=== PATIENT | female | born 1940 | race Caucasian/White ===

== ENCOUNTER 2022-02-21 14:46 | Inpatient (IN) | payer MEDICARE, MEDICAID ==
[~2022-02-21] VITALS: Ht 162.6 cm; Wt 68.2 kg
[2022-02-21] MEDS ORDERED: normal saline 1000ml 1,000 ML IV ONE (15:50)
[2022-02-21 16:19] LABS: BASOPHILS # (AUTO) 0.1 X10'3 (0-0.2); BASOPHILS % (AUTO) 0.8 % (0-1); EOSINOPHILS # (AUTO) 0.3 X10'3 (0-0.9); EOSINOPHILS % (AUTO) 3.9 % (0-6); HEMATOCRIT 37.3 % (35.0-45.0); HEMOGLOBIN 12.2 g/dl (12.0-16.0); LYMPHOCYTES % (AUTO) 29.1 % (21-51); MEAN CORPUSCULAR HEMOGLOBIN 28.9 PG (27.0-31.0); MEAN CORPUSCULAR HGB CONC 32.7 g/dL (33.0-36.5); MEAN CORPUSCULAR VOLUME 88.4 FL (78-98); MEAN PLATELET VOLUME 7.1 FL (7.4-10.4); MONOCYTES # (AUTO) 0.7 X10'3 (0-0.9); MONOCYTES % (AUTO) 10.3 % (2-12); NEUTROPHILS # (AUTO) 3.9 X10'3 (1.8-7.7); NEUTROPHILS % (AUTO) 55.9 % (42-75); PLATELET COUNT 455 X10'3 (140-440); RED BLOOD COUNT 4.21 X10'6 (4.20-5.60); RED CELL DISTRIBUTION WIDTH 14.4 % (11.5-14.5)
[2022-02-21 16:32] LABS: APTT 27 SECONDS (22-32); D-DIMER 0.64 MG/L FEU (0-0.50)
[2022-02-21 16:33] LABS: ALANINE AMINOTRANSFERASE 24 U/L (12-78); ALBUMIN 3.7 G/DL (3.4-5.0); ALBUMIN/GLOBULIN RATIO 1.1 (1.1-1.5); ALKALINE PHOSPHATASE 77 IU/L (46-116); ANION GAP 12 (8-16); ASPARTATE AMINO TRANSFERASE 16 U/L (10-37); BILIRUBIN,TOTAL 0.3 MG/DL (0.1-1.0); BLOOD UREA NITROGEN 30 MG/DL (7-18); BUN/CREATININE RATIO 20.1 (6.6-38.0); CALCIUM 9.2 MG/DL (8.5-10.1); CHLORIDE 103 MMOL/L (99-107); CREATININE 1.49 MG/DL (0.40-0.90); GLUCOSE 84 MG/DL (70-104); MAGNESIUM 1.9 MG/DL (1.5-2.4); POTASSIUM 4.2 MMOL/L (3.5-5.1); SODIUM 139 MMOL/L (135-145); TOTAL CARBON DIOXIDE 23.6 MMOL/L (24-32); TOTAL PROTEIN 7.2 G/DL (6.4-8.2); eGFR 33 ML/MIN
[2022-02-21] MEDS ORDERED: aspirin 325mg tablet PO ONE (17:10)
[2022-02-21] MEDS ORDERED: clopidogrel 300mg tablet PO ONE (17:10)
[2022-02-21] MEDS ORDERED: LOSA25TA41 PO (17:50)
[2022-02-21] MEDS ORDERED: CELE-80 PO (17:51)
[2022-02-21] MEDS ORDERED: mag hydrox/Alum hydrox/simeth 30ml oral suspension PO PRN (17:55)
[2022-02-21] MEDS ORDERED: magnesium hydroxide 30ml (MOM) UD suspension PO PRN (17:55)
[2022-02-21] MEDS: normal saline 1000ml 1,000 ML IV SCH (18:00)
--- NOTE | 2022-02-21 18:20 | NUR ---
ECHO CALLED SAID THIS PATIENT WILL NOT GET DONE TILL THE AM 02/21/2022 0132
[2022-02-21 18:24] LABS: CHOL/HDL RATIO 6.2 (0.00-4.99); CHOLESTEROL 305 MG/DL (0-200); HDL CHOLESTEROL 49 MG/DL (35-60); LDL CHOLESTEROL 172 MG/DL (50-100); TRIGLYCERIDES 405 MG/DL (20-135)
[2022-02-21] MEDS ORDERED: aminophylline 500mg/20ml vial IV PRN (20:25)
[2022-02-21] MEDS ORDERED: regadenoson 0.4mg/5ml syringe IV PRN (20:25)
[2022-02-21] MEDS ORDERED: metoprolol tartrate 1mg/ml inj IV PRN (20:25)
[2022-02-21] MEDS ORDERED: nitroGLYCERIN 0.4mg SUBLingual tab SL PRN (20:25)
[2022-02-21] MEDS: docusate sod 100mg capsule PO SCH (20:48)
--- NOTE | 2022-02-21 23:21 | NUR ---
Pt moved from forman bed to room 12 awaiting a bed for admit. Pt is aware she is NPO for a procedure in the AM. Pt has no compalints at this time.
[2022-02-22] VITALS (11 sets, daily range): BP systolic 104–216; BP diastolic 46–109
[2022-02-22] MEDS: normal saline 1000ml 1,000 ML IV SCH ×4 (01:26→22:15)
[2022-02-22 03:29] LABS: BASOPHILS # (AUTO) 0.1 X10'3 (0-0.2); BASOPHILS % (AUTO) 0.9 % (0-1); EOSINOPHILS # (AUTO) 0.3 X10'3 (0-0.9); HEMATOCRIT 38.3 % (35.0-45.0); HEMOGLOBIN 12.7 g/dl (12.0-16.0); LYMPHOCYTES # (AUTO) 2.2 X10'3 (1.1-4.8); LYMPHOCYTES % (AUTO) 29.1 % (21-51); MEAN CORPUSCULAR HEMOGLOBIN 29.7 PG (27.0-31.0); MEAN CORPUSCULAR HGB CONC 33.3 g/dL (33.0-36.5); MEAN CORPUSCULAR VOLUME 89.2 FL (78-98); MONOCYTES # (AUTO) 0.8 X10'3 (0-0.9); MONOCYTES % (AUTO) 10.8 % (2-12); NEUTROPHILS # (AUTO) 4.2 X10'3 (1.8-7.7); NEUTROPHILS % (AUTO) 55.2 % (42-75); PLATELET COUNT 440 X10'3 (140-440); RED BLOOD COUNT 4.29 X10'6 (4.20-5.60); RED CELL DISTRIBUTION WIDTH 14.3 % (11.5-14.5); WHITE BLOOD COUNT 7.7 X10'3 (4.5-11.0)
[2022-02-22 03:39] LABS: ALBUMIN 3.7 G/DL (3.4-5.0); ANION GAP 9 (8-16); BLOOD UREA NITROGEN 30 MG/DL (7-18); BUN/CREATININE RATIO 23.6 (6.6-38.0); CALCIUM 9.2 MG/DL (8.5-10.1); CHLORIDE 107 MMOL/L (99-107); CREATININE 1.27 MG/DL (0.40-0.90); GLUCOSE 93 MG/DL (70-104); POTASSIUM 4.3 MMOL/L (3.5-5.1); SODIUM 143 MMOL/L (135-145); TOTAL CARBON DIOXIDE 26.9 MMOL/L (24-32); eGFR 40 ML/MIN
--- NOTE | 2022-02-22 06:30 | NUR ---
Ramon rivera in [facility] - 02/22/22 at 1033 by RENETTA Assumed care of pt from Mary.
--- NOTE | 2022-02-22 06:30 | NUR ---
Assumed care of pt from offgoing nurse.
[2022-02-22] MEDS: atorvastatin 20mg tablet PO SCH (07:16)
[2022-02-22] MEDS: docusate sod 100mg capsule PO SCH ×2 (07:17→20:15)
[2022-02-22] MEDS: clopidogrel 75mg tablet PO SCH (07:18)
[2022-02-22] MEDS: aspirin 81mg, enteric-coated 1 TAB TABLET.DR PO SCH (07:18)
--- NOTE | 2022-02-22 07:20 | NUR ---
Pt awake in no acute distress, ambulates to bathroom and back in bed without difficulty.
--- NOTE | 2022-02-22 07:25 | NUR ---
Speech Therapist and Nuclear med personnel at bedside. Pt given PO meds, tolerated without difficulty.
[2022-02-22] MEDS ORDERED: iohexol 350MG/ML 100ml bottle IV ONE (09:04)
--- NOTE | 2022-02-22 09:30 | NUR ---
Pt transported to [facility] for procedure.
[2022-02-22] MEDS ORDERED: phenylephrine inj 50 MG in normal saline 250ml IV soln 245 ML IV PRN (10:15)
[2022-02-22] MEDS ORDERED: nitroPRUSSIDE sod inj. 50 MG in dextrose 5%-water 248 ML IV SCH (10:15)
[2022-02-22] MEDS ORDERED: nitroPRUSSIDE 0.2mg/mL in NS 250 ML IV SCH (10:25)
[2022-02-22] MEDS ORDERED: nitroPRUSSIDE 0.2mg/mL in NS 100 ML IV SCH (10:27)
--- NOTE | 2022-02-22 10:29 | NUR ---
PAGER ID: [phone] MESSAGE: Dr Hadley, call stress lab [id number], Germaine Portillo room 12 in ER, BP 219/90, gave Lopressor, BP 196/81 HR 46, Starr CHANG. 1005 pt to stress lab, BP is high, medicated per protocol, 1013 BP remains high, HR 46, Dr Hadley paged, pt c/o headache, no blurred vision, no dizziness, no chest pain/discomfort
--- NOTE | 2022-02-22 10:35 | NUR ---
report to Norma CHANG in ER
--- NOTE | 2022-02-22 10:35 | NUR ---
pt taken back ER, report to Mary CHANG
[2022-02-22] MEDS ORDERED: hydrALAZINE 20mg/ml inj. IV ONE ×2 (10:55→14:10)
--- NOTE | 2022-02-22 11:00 | NUR ---
Pt back from treadalong, connected back to monitor for obseervation, denies cp, sob or other sx.
--- NOTE | 2022-02-22 11:11 | NUR ---
PAGED DR. HUFFMAN FOR CLARIFICATION ON BP MED. WILL AWAIT PHONE CALL. PT MEDICATED WITH HYDRALAZINE IN THE MEAN TIME.
--- NOTE | 2022-02-22 12:20 | NUR ---
Dr Hadley paged to request anxiety medication for stress test and to follow up with blood pressure.
[2022-02-22] MEDS: LORazepam 0.5 MG tablet PO PRN ×2 (12:39→22:28)
--- NOTE | 2022-02-22 12:45 | NUR ---
Pt's at bedside.
--- NOTE | 2022-02-22 13:25 | NUR ---
Pt transported back to nuclear medicine for stress test .
--- NOTE | 2022-02-22 13:30 | NUR ---
Pt admitted to hospital for further observation.
[2022-02-22] MEDS ORDERED: regadenoson 0.4mg/5ml syringe IV PRN (14:10)
--- NOTE | 2022-02-22 14:11 | NUR ---
pt is back in stress lab, BP 234/111, Dr Hadley aware, gave verbal order for hydralzine 10mg IV x1, can do stress test when BP is 160/. pt is resting quietly on recliner, no complaints
--- NOTE | 2022-02-22 14:20 | NUR ---
Attempeted multiple time to start iv to give medication, unsuccessful at this time. Admission provider paged to make aware.
--- NOTE | 2022-02-22 15:20 | NUR ---
OR CALLED; STATING THAT PT WAS SCHED FOR A CORATID PROCEEDUR THIS AFTERNOON HOWEVER ICU WILL NOT BEABLE TO TAKE PT THIS EVENING. SURGERY HAS BEEN POSPONED UNTIL 02/23 @1131
--- NOTE | 2022-02-22 15:46 | NUR ---
STRESS TEST COMPLETE, PT BACK TO ER ROOM 12, REPORT TO KARLA CHANG
[2022-02-22] MEDS: acetaminophen 325mg tablet PO PRN ×2 (15:49→20:15)
--- NOTE | 2022-02-22 15:50 | NUR ---
PT C/O HEADACHE, MEDICATED WITH TYLENOL,
--- NOTE | 2022-02-22 15:57 | NUR ---
Pt back from nuclear medicine after stress test. Pt connected back to equipment monitor phototypesetting for further observation.
[2022-02-23] VITALS (14 sets, daily range): BP systolic 121–198; BP diastolic 49–85
--- NOTE | 2022-02-23 01:00 | NUR ---
Patient in room ED 12. I have received report from Katheryn CHANG and had the opportunity to ask questions and assume patient care.
--- NOTE | 2022-02-23 01:36 | NUR ---
Pt up on unit. Denies any c/o pain, no s/s of distress. Pt on RA.
[2022-02-23] MEDS: normal saline 1000ml 1,000 ML IV SCH ×2 (04:54→10:40)
--- NOTE | 2022-02-23 06:18 | NUR ---
Problems reprioritized. Patient report given, questions answered & plan of care reviewed with Zenobia CHANG.
[2022-02-23 07:35] LABS: BASOPHILS % (AUTO) 0.3 % (0-1); EOSINOPHILS # (AUTO) 0.2 X10'3 (0-0.9); EOSINOPHILS % (AUTO) 2.5 % (0-6); HEMATOCRIT 34.6 % (35.0-45.0); HEMOGLOBIN 11.5 g/dl (12.0-16.0); LYMPHOCYTES # (AUTO) 1.5 X10'3 (1.1-4.8); LYMPHOCYTES % (AUTO) 22.4 % (21-51); MEAN CORPUSCULAR HEMOGLOBIN 29.4 PG (27.0-31.0); MEAN CORPUSCULAR HGB CONC 33.2 g/dL (33.0-36.5); MEAN CORPUSCULAR VOLUME 88.6 FL (78-98); MONOCYTES # (AUTO) 0.6 X10'3 (0-0.9); MONOCYTES % (AUTO) 9.3 % (2-12); NEUTROPHILS # (AUTO) 4.3 X10'3 (1.8-7.7); NEUTROPHILS % (AUTO) 65.5 % (42-75); PLATELET COUNT 435 X10'3 (140-440); RED BLOOD COUNT 3.91 X10'6 (4.20-5.60); RED CELL DISTRIBUTION WIDTH 14.1 % (11.5-14.5); WHITE BLOOD COUNT 6.6 X10'3 (4.5-11.0)
[2022-02-23 07:38] LABS: ALBUMIN 3.2 G/DL (3.4-5.0); ANION GAP 7 (8-16); BLOOD UREA NITROGEN 24 MG/DL (7-18); BUN/CREATININE RATIO 20.7 (6.6-38.0); CALCIUM 8.6 MG/DL (8.5-10.1); CHLORIDE 110 MMOL/L (99-107); CREATININE 1.16 MG/DL (0.40-0.90); GLUCOSE 94 MG/DL (70-104); POTASSIUM 3.6 MMOL/L (3.5-5.1); SODIUM 142 MMOL/L (135-145); eGFR 45 ML/MIN
[2022-02-23] MEDS: docusate sod 100mg capsule PO SCH ×2 (08:00→20:00)
[2022-02-23] MEDS: aspirin 81mg, enteric-coated 1 TAB TABLET.DR PO SCH (08:00)
[2022-02-23] MEDS: clopidogrel 75mg tablet PO SCH (08:00)
[2022-02-23] MEDS: atorvastatin 20mg tablet PO SCH (08:00)
[2022-02-23] MEDS: acetaminophen 325mg tablet PO PRN (08:02)
--- NOTE | 2022-02-23 09:53 | NUR ---
Per MD Hadley - zuly to miss dose all AM meds d/t sx.
[2022-02-23] MEDS: losartan 25mg tablet PO SCH (10:34)
[2022-02-23] MEDS: LORazepam 0.5 MG tablet PO PRN (10:35)
[2022-02-23] MEDS ORDERED: LIDOcaine 1% (10mg/ml) 2ml vial ONE ×2 (10:37→10:56)
[2022-02-23] MEDS ORDERED: normal saline 1000ml 1,000 ML IV SCH (10:40)
[2022-02-23] MEDS ORDERED: heparin 10,000 units/1 ML INJ ONE (10:56)
--- NOTE | 2022-02-23 11:15 | NUR ---
Pt was taken to OR with OR staff. Daughter Ashli, Jeffrey in tow. All personal belongings were taken down with patient by daughter Ashli. Pt's BP was high d/t anxiety. OR staff aware that losartan and ativan was given about 30 min prior. Called report to Chacho in recovery. All questions, comments, concerns answered at this time. Tele box 24 was handed to telegraph repeater mechanic monitor.
[2022-02-23] MEDS ORDERED: midazolam 1 mg/ML 2ml injection ONE (11:59)
[2022-02-23] MEDS ORDERED: propofol inj 20 ML IV ONE (11:59)
[2022-02-23] MEDS ORDERED: fentaNYL/PF 50MCG/1 ML 2ML syringe ONE (11:59)
[2022-02-23] MEDS ORDERED: rocuronium 10mg/ml inj IV ONE ×2 (12:02→12:56)
[2022-02-23] MEDS ORDERED: ePHEDrine 50MG/ML INJ. ONE (12:04)
[2022-02-23] MEDS ORDERED: sevoflurane 250ml liquid IH ONE (12:06)
[2022-02-23] MEDS ORDERED: protamine sulf. 10mg/ml inj. IV ONE (12:06)
[2022-02-23] MEDS ORDERED: neostigmine methylsulfate 1 MG/ML 10ml vial ONE (12:06)
[2022-02-23] MEDS ORDERED: ceFAZolin 1000mg inj ONE ×2 (12:29)
[2022-02-23] MEDS ORDERED: meperidine/PF 25mg/ml syringe IV PRN ×3 (13:15)
[2022-02-23] MEDS ORDERED: proCHLORperazine 10 MG/2 ml inj IV PRN (13:15)
[2022-02-23] MEDS ORDERED: ringers solution, lacted 1,000 ML IV SCH (13:15)
[2022-02-23] MEDS ORDERED: ondansetron/PF 4mg/2ml inj IV PRN (13:15)
[2022-02-23] MEDS ORDERED: morphine 4 MG/ML inj SYRINge IV PRN (13:15)
[2022-02-23] MEDS ORDERED: labetalol 20mg/4ml (5mg/ml) syringe IV ONE (14:56)
[2022-02-23] MEDS ORDERED: sugammadex 200mg/2ml injection IV ONE (14:56)
--- NOTE | 2022-02-23 15:25 | NUR ---
Received from OR via ICU BED, accompanied by Anesthesiologist DR. MCGEE and report given by Anesthesiolgist. PT PLACED ON BEDISDE MONIROR, VSS. PT IS GROGGY BUT DOES AROUSE TO VERBAL STIMULI, FOLLWED ALL COMMANDS, MOVES ALL EXTEMITIES, [employer] SALES AND BUSINESS DEVELOPMENT MANAGER, PUSH, PULLS BILATERALLY, PT'S FACIAL SYMMETRY INTACT. PT IS IN NSR WITH RATE IN 60'S AND IS HAVING OCCASIONAL PVC'S. PT HAS DRSG TO RT NECK WITH JIMMY DRAIN, THERE IS SOME OOZING AT SURGICAL SITE NOTED TO DRSG ANS IT HAS BEEN RE-ENFORCED WITH PRESSURE DRSG DIRECTED BY ANESTHESIA. JIMMY DRAINED AND YEILDED 20ML SANGUINEOUS DRAINAGE. PT HAS 20G PIV TO RT LATERAL FOREARM. PT HAS A-LINE TO RT RADIAL, LINE TRANSDUCED TO PRESSURE TUBING AND HAS BEEN ZEROED. MILLER IN PLACE DRAINING TO GRAVITY WITH CLEAR YELLOW URINE NOTED. SCD'S IN PALCE. PT DENIES PAIN AT THIS TIME, CHUY CONTINUE TO MONITOR.
[2022-02-23 15:34] LABS: APTT > 139 SECONDS (22-32)
[2022-02-23] MEDS ORDERED: naloxone 0.4 mg/ml inj IV PRN (15:45)
[2022-02-23] MEDS ORDERED: ceFAZolin inj. 1,000 MG in dextrose 5%-water 50ml 50 ML IV SCH (16:00)
--- NOTE | 2022-02-23 16:10 | NUR ---
CARE OF PATIENT AND REPORT HAS BEEN GIVEN TO THERESE RN. ALL QUESTIONS ANSWERED TO ACCEPTING RN. PATIENT HAS MET ALL CRITERIA FOR TRANSFER TO THE ICU FLOOR. VSS. DRESSINGS REINFORCED AND INTACT. BED LOW, CALL LIGHT PRESENT AND 2 RAILS UP. RN PRESENT TO ACCEPT.
[2022-02-23 16:36] LABS: APTT 25 SECONDS (22-32)
[2022-02-23] MEDS: ondansetron/PF 4mg/2ml inj IV PRN (16:43)
[2022-02-23] MEDS: ceFAZolin/D5W- 1GM premix 50 ML IV SCH (16:49)
[2022-02-23] MEDS: morphine 2 MG/ML inj. syringe IV PRN ×2 (18:38→20:49)
[2022-02-23] MEDS: HYDROcodone/acetaminophen 5mg/325mg tablet PO PRN (22:35)
[2022-02-24] VITALS (13 sets, daily range): BP systolic 111–186; BP diastolic 45–95
[2022-02-24] MEDS: ceFAZolin/D5W- 1GM premix 50 ML IV SCH (00:34)
[2022-02-24] MEDS: normal saline 1000ml 1,000 ML IV SCH ×2 (00:58→15:16)
[2022-02-24] MEDS: HYDROcodone/acetaminophen 5mg/325mg tablet PO PRN ×3 (03:08→19:12)
--- NOTE | 2022-02-24 03:30 | NUR ---
ARTLINE DISCONTINUE R/T LINE DUMPING , UNABLE TO GET BLOOD WELL .
[2022-02-24 04:02] LABS: BASOPHILS % (AUTO) 0.4 % (0-1); EOSINOPHILS % (AUTO) 0.4 % (0-6); HEMATOCRIT 28.1 % (35.0-45.0); HEMOGLOBIN 9.5 g/dl (12.0-16.0); LYMPHOCYTES # (AUTO) 1.1 X10'3 (1.1-4.8); LYMPHOCYTES % (AUTO) 14.7 % (21-51); MEAN CORPUSCULAR HEMOGLOBIN 30.1 PG (27.0-31.0); MEAN CORPUSCULAR HGB CONC 33.7 g/dL (33.0-36.5); MEAN CORPUSCULAR VOLUME 89.2 FL (78-98); MONOCYTES # (AUTO) 0.8 X10'3 (0-0.9); MONOCYTES % (AUTO) 10.5 % (2-12); NEUTROPHILS # (AUTO) 5.6 X10'3 (1.8-7.7); PLATELET COUNT 339 X10'3 (140-440); RED BLOOD COUNT 3.15 X10'6 (4.20-5.60); RED CELL DISTRIBUTION WIDTH 14.5 % (11.5-14.5); WHITE BLOOD COUNT 7.6 X10'3 (4.5-11.0)
[2022-02-24 04:07] LABS: ALBUMIN 2.8 G/DL (3.4-5.0); ANION GAP 9 (8-16); BLOOD UREA NITROGEN 18 MG/DL (7-18); CALCIUM 7.8 MG/DL (8.5-10.1); CHLORIDE 110 MMOL/L (99-107); GLUCOSE 99 MG/DL (70-104); POTASSIUM 4.1 MMOL/L (3.5-5.1); SODIUM 141 MMOL/L (135-145); TOTAL CARBON DIOXIDE 21.9 MMOL/L (24-32); eGFR 53 ML/MIN
[2022-02-24] MEDS: clopidogrel 75mg tablet PO SCH (08:00)
[2022-02-24] MEDS: docusate sod 100mg capsule PO SCH ×2 (08:00→19:11)
[2022-02-24] MEDS: aspirin 81mg, enteric-coated 1 TAB TABLET.DR PO SCH (08:00)
[2022-02-24] MEDS: atorvastatin 20mg tablet PO SCH (08:00)
[2022-02-24] MEDS: losartan 25mg tablet PO SCH (08:00)
--- NOTE | 2022-02-24 10:27 | NUR ---
vss, PT. IN STABLE CONDITION. FAMILY AT BEDSIDE. TRANSFER REPORT GIVEN TO NURSE MIRANDA ON TELEMETRY.
[2022-02-24] MEDS: ondansetron/PF 4mg/2ml inj IV PRN (20:53)
[2022-02-24] MEDS: LORazepam 0.5 MG tablet PO PRN (21:11)
[2022-02-25] VITALS (12 sets, daily range): BP systolic 148–208; BP diastolic 66–94
[2022-02-25] MEDS ORDERED: losartan 25mg tablet PO STA (03:24)
--- NOTE | 2022-02-25 03:36 | NUR ---
pt bp 208/93, bp was reassessed 198/86 hospitalist was notified. Telephone order of Cozaar 25mg to be administered stat. no acute distress noted. Will continue to monitor pt.
[2022-02-25 06:03] LABS: BASOPHILS % (AUTO) 0.2 % (0-1); EOSINOPHILS # (AUTO) 0.2 X10'3 (0-0.9); EOSINOPHILS % (AUTO) 2.6 % (0-6); HEMATOCRIT 30.4 % (35.0-45.0); HEMOGLOBIN 10.1 g/dl (12.0-16.0); LYMPHOCYTES # (AUTO) 1.3 X10'3 (1.1-4.8); LYMPHOCYTES % (AUTO) 17.5 % (21-51); MEAN CORPUSCULAR HEMOGLOBIN 29.9 PG (27.0-31.0); MEAN CORPUSCULAR HGB CONC 33.2 g/dL (33.0-36.5); MEAN PLATELET VOLUME 6.9 FL (7.4-10.4); MONOCYTES # (AUTO) 0.8 X10'3 (0-0.9); MONOCYTES % (AUTO) 10.9 % (2-12); NEUTROPHILS # (AUTO) 5.3 X10'3 (1.8-7.7); NEUTROPHILS % (AUTO) 68.8 % (42-75); PLATELET COUNT 359 X10'3 (140-440); RED BLOOD COUNT 3.38 X10'6 (4.20-5.60); RED CELL DISTRIBUTION WIDTH 14.3 % (11.5-14.5); WHITE BLOOD COUNT 7.6 X10'3 (4.5-11.0)
--- NOTE | 2022-02-25 06:45 | NUR ---
Patient in room PCU 3014J. I have received report from CHARLENE ANTONY and had the opportunity to ask questions and assume patient care.
[2022-02-25 06:46] LABS: ALBUMIN 3.2 G/DL (3.4-5.0); ANION GAP 7 (8-16); BLOOD UREA NITROGEN 11 MG/DL (7-18); BUN/CREATININE RATIO 11.2 (6.6-38.0); CALCIUM 8.4 MG/DL (8.5-10.1); CHLORIDE 107 MMOL/L (99-107); CREATININE 0.98 MG/DL (0.40-0.90); GLUCOSE 92 MG/DL (70-104); POTASSIUM 4.3 MMOL/L (3.5-5.1); SODIUM 140 MMOL/L (135-145); TOTAL CARBON DIOXIDE 26.3 MMOL/L (24-32); eGFR 54 ML/MIN
[2022-02-25] MEDS ORDERED: hydrALAZINE 20mg/ml inj. IV PRN ×3 (07:35→15:10)
[2022-02-25] MEDS: aspirin 81mg, enteric-coated 1 TAB TABLET.DR PO SCH (07:57)
[2022-02-25] MEDS: atorvastatin 20mg tablet PO SCH (07:58)
[2022-02-25] MEDS: docusate sod 100mg capsule PO SCH ×2 (07:59→20:41)
[2022-02-25] MEDS: clopidogrel 75mg tablet PO SCH (07:59)
[2022-02-25] MEDS: losartan 25mg tablet PO SCH (07:59)
[2022-02-25] MEDS: acetaminophen 325mg tablet PO PRN ×3 (08:00→21:05)
[2022-02-25] MEDS: normal saline 1000ml 1,000 ML IV SCH (08:01)
--- NOTE | 2022-02-25 14:30 | NUR ---
PATIENT'S BP HAS BEEN HIGH PAGED ABOUT IT THIS MORNING AND GOT AN ORDER FOR HYDRALAZINE, AT 11 AM VITALS THE BP WERE HIGH AGAIN DESPITE MEDS, TALKED TO DR ABOUT IT SHE STATED THAT SHE WAS GOING TO LEAVE IT ALONE FOR NOW BUT WANTS TO HAVE THE BP TAKEN ON BOTH ARMS AND CHARTED
[2022-02-25] MEDS: metoprolol tartrate 25mg tablet PO SCH ×2 (15:29→20:41)
--- NOTE | 2022-02-25 19:34 | NUR ---
Problems reprioritized. Patient report given, questions answered & plan of care reviewed with CHARLENE OBRIEN.
[2022-02-26] VITALS (9 sets, daily range): BP systolic 133–206; BP diastolic 64–81
[2022-02-26 06:39] LABS: BASOPHILS % (AUTO) 0.5 % (0-1); EOSINOPHILS # (AUTO) 0.3 X10'3 (0-0.9); EOSINOPHILS % (AUTO) 3.9 % (0-6); HEMATOCRIT 30.5 % (35.0-45.0); HEMOGLOBIN 10.2 g/dl (12.0-16.0); LYMPHOCYTES # (AUTO) 1.3 X10'3 (1.1-4.8); MEAN CORPUSCULAR HEMOGLOBIN 30.2 PG (27.0-31.0); MEAN CORPUSCULAR HGB CONC 33.5 g/dL (33.0-36.5); MEAN CORPUSCULAR VOLUME 89.9 FL (78-98); MEAN PLATELET VOLUME 7.1 FL (7.4-10.4); MONOCYTES # (AUTO) 0.7 X10'3 (0-0.9); MONOCYTES % (AUTO) 10.8 % (2-12); NEUTROPHILS # (AUTO) 4.3 X10'3 (1.8-7.7); NEUTROPHILS % (AUTO) 64.8 % (42-75); PLATELET COUNT 376 X10'3 (140-440); RED BLOOD COUNT 3.39 X10'6 (4.20-5.60); RED CELL DISTRIBUTION WIDTH 14.5 % (11.5-14.5); WHITE BLOOD COUNT 6.7 X10'3 (4.5-11.0)
[2022-02-26 06:52] LABS: ALBUMIN 3.2 G/DL (3.4-5.0); ANION GAP 8 (8-16); BLOOD UREA NITROGEN 10 MG/DL (7-18); BUN/CREATININE RATIO 9.8 (6.6-38.0); CALCIUM 8.5 MG/DL (8.5-10.1); CHLORIDE 109 MMOL/L (99-107); CREATININE 1.02 MG/DL (0.40-0.90); GLUCOSE 94 MG/DL (70-104); POTASSIUM 3.7 MMOL/L (3.5-5.1); SODIUM 143 MMOL/L (135-145); TOTAL CARBON DIOXIDE 26.5 MMOL/L (24-32); eGFR 52 ML/MIN
[2022-02-26] MEDS: losartan 25mg tablet PO SCH (08:33)
[2022-02-26] MEDS: clopidogrel 75mg tablet PO SCH (08:34)
[2022-02-26] MEDS: aspirin 81mg, enteric-coated 1 TAB TABLET.DR PO SCH (08:34)
[2022-02-26] MEDS: docusate sod 100mg capsule PO SCH (08:34)
[2022-02-26] MEDS: metoprolol tartrate 25mg tablet PO SCH (08:34)
[2022-02-26] MEDS: atorvastatin 20mg tablet PO SCH (08:34)
--- NOTE | 2022-02-26 09:00 | NUR ---
Initial: Pt admitted w/ R ICA stenosis, s/p endarterectomy this admit per EMR. Previously on Clear liquid diet w/ avg intake 50% of meals, advanced to Regular diet yesterday 02/25. Will await further PO trends prior to making recommendations. LBM 02/22 receiving routine colace. Will continue to monitor and make recommendations as appropriate. Recs: 1. Continue Regular diet as tolerated 2. Monitor need for ONS pending further PO trends 3. Routine bowel care 4. Weekly wts Addendum: 02/26/22 at [address] Amended: Links added.
[2022-02-26] MEDS ORDERED: ATOR20TA66 PO (10:07)
[2022-02-26] MEDS ORDERED: CLOP75TA34 PO (10:07)
[2022-02-26] MEDS: acetaminophen 325mg tablet PO PRN (10:32)
[2022-02-26] MEDS ORDERED: METO-395 PO (10:41)
--- NOTE | 2022-02-26 14:20 | NUR ---
PATIENT STABLE AND APPROPRIATE FOR DISCHARGE, BPS HAVE BEEN HIGH BUT DR SAID PATIENT CAN DC WITH BP UNDER 180 SBP, IV REMOVED, TELE REMOVED, JIMMY DRAIN REMOVED, NEW MEDS E-SCRIPTED TO PREFERRED PHARMACY, EDUCATION GIVEN, ALL BELONGINGS SENT WITH PATIENT, PATIENT TAKEN TO LOBBY IN WHEELCHAIR TO AN AWAITING CAR WHERE DAUGHTER WILL TAKE PATIENT HOME
== END 2022-02-26 14:20 | disposition home or self-care (01) | DRG 37 ==
LOC: ER 14:47 → UNDOADMIN 17:54 → ED HOLD 17:54 → PCU 3S 02-23 02:12 → CICU 2S 02-23 12:34 → PCU 3S 02-24 11:38
PROVIDERS: ADMIT Family Medicine; ATTEND Family Medicine
PROC: 4A02XM4 Measurement of Cardiac Total Activity, External Approach (ICD-10-PCS; 2022-02-22)
PROC: 3E033HZ Introduction of Radioactive Substance into Peripheral Vein, Percutaneous Approach (ICD-10-PCS; 2022-02-22)
PROC: B3251ZZ Computerized Tomography (CT Scan) of Bilateral Common Carotid Arteries using Low Osmolar Contrast (ICD-10-PCS; 2022-02-22)
PROC: B32G1ZZ Computerized Tomography (CT Scan) of Bilateral Vertebral Arteries using Low Osmolar Contrast (ICD-10-PCS; 2022-02-22)
PROC: B32R1ZZ Computerized Tomography (CT Scan) of Intracranial Arteries using Low Osmolar Contrast (ICD-10-PCS; 2022-02-22)
PROC: B3281ZZ Computerized Tomography (CT Scan) of Bilateral Internal Carotid Arteries using Low Osmolar Contrast (ICD-10-PCS; 2022-02-22)
PROC: 03CK0ZZ Extirpation of Matter from Right Internal Carotid Artery, Open Approach (ICD-10-PCS; 2022-02-23)
PROC: 03CM0ZZ Extirpation of Matter from Right External Carotid Artery, Open Approach (ICD-10-PCS; 2022-02-23)
PROC: 03UH0KZ Supplement Right Common Carotid Artery with Nonautologous Tissue Substitute, Open Approach (ICD-10-PCS; 2022-02-23)
PROC: 4A10X4Z Monitoring of Central Nervous Electrical Activity, External Approach (ICD-10-PCS; 2022-02-23)
PROC: 03UK0KZ Supplement Right Internal Carotid Artery with Nonautologous Tissue Substitute, Open Approach (ICD-10-PCS; 2022-02-23)
PROC: 03UM0KZ Supplement Right External Carotid Artery with Nonautologous Tissue Substitute, Open Approach (ICD-10-PCS; 2022-02-23)
PROC: 03CJ0ZZ Extirpation of Matter from Left Common Carotid Artery, Open Approach (ICD-10-PCS; principal; 2022-02-23 12:06)
DX: I65.23 Occlusion and stenosis of bilateral carotid arteries (principal); N17.0 Acute kidney failure with tubular necrosis; R00.1 Bradycardia, unspecified; E66.9 Obesity, unspecified; F41.9 Anxiety disorder, unspecified; J45.909 Unspecified asthma, uncomplicated; Z20.822 Contact with and (suspected) exposure to COVID-19; M19.90 Unspecified osteoarthritis, unspecified site; I10 Essential (primary) hypertension; E78.5 Hyperlipidemia, unspecified; Z79.899 Other long term (current) drug therapy; Z68.25 Body mass index [BMI] 25.0-25.9, adult; Z88.5 Allergy status to narcotic agent
CPT/HCPCS: 36415; 70496; 70498; 71045; 78452; 80048; 80053; 80061; 83735; 85025; 85379; 85610; 85730; 87081; 87635; 88173; 88305; 92508; 92616; 93017; 93306; 93880; 96360; 97116; 97161; 97530; 99285; A4615; A4618; A6213; A6258; A6449; A7000; A9500; C1758; C1768; C1887; G0378; J0360; J0690; J1644; J2250; J2270; J2405; J2704; J2710; J2720; J3010; J3490; J7030; J7040; J7120; Q9967

== ENCOUNTER 2022-03-29 12:30 | Observation (INO) | payer MEDICARE, MEDICAID ==
[2022-03-27 11:21] LABS: BASOPHILS % (AUTO) 0.4 % (0-1); EOSINOPHILS # (AUTO) 0.2 X10'3 (0-0.9); EOSINOPHILS % (AUTO) 3.9 % (0-6); LYMPHOCYTES # (AUTO) 1.4 X10'3 (1.1-4.8); LYMPHOCYTES % (AUTO) 23.7 % (21-51); MEAN CORPUSCULAR HEMOGLOBIN 29.5 PG (27.0-31.0); MEAN CORPUSCULAR VOLUME 89.3 FL (78-98); MEAN PLATELET VOLUME 7.3 FL (7.4-10.4); MONOCYTES # (AUTO) 0.6 X10'3 (0-0.9); MONOCYTES % (AUTO) 10.3 % (2-12); NEUTROPHILS # (AUTO) 3.6 X10'3 (1.8-7.7); NEUTROPHILS % (AUTO) 61.7 % (42-75); PRE OP HEMATOCRIT 33.3 % (35.0-45.0); PRE OP PLATELET COUNT 390 X10'3 (140-440); RED BLOOD COUNT 3.73 X10'6 (4.20-5.60); RED CELL DISTRIBUTION WIDTH 14.6 % (11.5-14.5)
[2022-03-27 11:36] LABS: ALBUMIN 3.7 G/DL (3.4-5.0); ALBUMIN/GLOBULIN RATIO 1.1 (1.1-1.5); ALKALINE PHOSPHATASE 90 IU/L (46-116); BLOOD UREA NITROGEN 33 MG/DL (7-18); BUN/CREATININE RATIO 21.3 (6.6-38.0); CALCIUM 8.9 MG/DL (8.5-10.1); CHLORIDE 106 MMOL/L (99-107); CREATININE 1.55 MG/DL (0.40-0.90); PRE OP ALT 22 U/L (30-65); PRE OP ANION GAP 12 (8-16); PRE OP AST 19 U/L (10-37); PRE OP BILIRUB, TOTAL 0.2 MG/DL (0.0-1.0); PRE OP GLUCOSE 92 MG/DL (70-104); PRE OP POTASSIUM 4.2 MMOL/L (3.4-5.1); PRE OP SODIUM 142 MMOL/L (135-145); TOTAL CARBON DIOXIDE 24.3 MMOL/L (24-32); TOTAL PROTEIN 7.2 G/DL (6.4-8.2); eGFR 32 ML/MIN
[~2022-03-29] VITALS: Ht 154.9 cm; Wt 75.7 kg
[~2022-03-29 12:30] MED LIST: ALBU8.5H17 IH; ASPI81TA52 PO; ATOR20TA66 PO; CELE-80 PO; CETI10TA14 PO; LOSA25TA41 PO; METO-539 PO; PROP20TA6 PO
[2022-03-30] VITALS (17 sets, daily range): BP systolic 144–215; BP diastolic 61–93
[2022-03-30] MEDS ORDERED: ringers solution, lacted 1,000 ML IV SCH ×2 (05:00→15:30)
[2022-03-30] MEDS ORDERED: famotidine 20mg tablet PO ONE (05:30)
[2022-03-30] MEDS ORDERED: DOCUMENT DATE & TIME OF BETA-BLOCKER PO ONE (05:30)
[2022-03-30] MEDS ORDERED: nitroPRUSSIDE (NIPRIDE) (200MCG/ML) 100ML Drip IV SCH (05:30)
[2022-03-30] MEDS ORDERED: phenylephrine inj 50 MG in normal saline 250ml IV solN IV SCH (05:30)
[2022-03-30] MEDS ORDERED: albuterol 2.5 MG/3 ML nebule NEB ONE (05:30)
[2022-03-30] MEDS ORDERED: ceFAZolin inj. 2,000 MG in dextrose 5%-water 100 ML IV ONE (05:30)
[2022-03-30] MEDS ORDERED: LIDOcaine 1% (10mg/ml) 2ml vial ONE (15:04)
[2022-03-30] MEDS ORDERED: heparin 10,000 units/1 ML INJ ONE (15:05)
[2022-03-30] MEDS ORDERED: meperidine/PF 25mg/ml syringe IV PRN (15:30)
[2022-03-30] MEDS ORDERED: proCHLORperazine 10 MG/2 ml inj IV PRN (15:30)
[2022-03-30] MEDS ORDERED: acetaminophen 1,000mg/100ml IV 100 ML IV PRN (15:30)
[2022-03-30] MEDS ORDERED: morphine 2 MG/ML inj. syringe IV PRN (15:30)
[2022-03-30] MEDS ORDERED: labetalol 20mg/4ml (5mg/ml) syringe IV PRN (15:30)
[2022-03-30] MEDS ORDERED: ondansetron/PF 4mg/2ml inj IV PRN (15:30)
[2022-03-30] MEDS ORDERED: morphine 4 MG/ML inj SYRINge IV PRN (15:30)
[2022-03-30] MEDS ORDERED: ketorolac tromethamine 15mg/ml inj. IV ONE (15:30)
[2022-03-30] MEDS ORDERED: HYDROmorphone/PF 0.2 MG/ML SYRINGE IV PRN ×2 (15:30)
[2022-03-30] MEDS ORDERED: fentaNYL/PF 50MCG/1 ML 2ML syringe ONE (15:38)
[2022-03-30] MEDS ORDERED: midazolam 1 mg/ML 2ml injection ONE (15:39)
[2022-03-30] MEDS ORDERED: propofol inj 20 ML IV ONE (18:04)
[2022-03-30] MEDS ORDERED: dexamethasone sod phosphate 4mg/ml inj. ONE (18:04)
[2022-03-30] MEDS ORDERED: 0.9 % SODIUM CHLORIDE 10 ML VIAL ONE (18:04)
[2022-03-30] MEDS ORDERED: LIDOcaine 2% (20mg/ml) 5ml vial ONE (18:04)
[2022-03-30] MEDS ORDERED: rocuronium 10mg/ml inj IV ONE (18:04)
[2022-03-30] MEDS ORDERED: ondansetron/PF 4mg/2ml inj ONE (18:04)
[2022-03-30] MEDS ORDERED: ePHEDrine 50MG/ML INJ. ONE (18:05)
[2022-03-30] MEDS ORDERED: naloxone 0.4 mg/ml inj IV PRN (18:30)
[2022-03-30] MEDS ORDERED: HYDROcodone/acetaminophen 5mg/325mg tablet PO PRN (18:30)
[2022-03-30] MEDS ORDERED: sugammadex 200mg/2ml injection IV ONE (18:37)
--- NOTE | 2022-03-30 18:39 | NUR ---
Received from OR via hospital bed, accompanied by Anesthesiologist and report given by Te Anesthesiologist. PATIENT WAKING UP, DENIES PAIN, V/S WNL, 16G TO L HAND, SCD ON, RIGHT ARM KERLEX DRESSING C/D/I. MILLER CATHETER DRAINING CLEAR YELLOW URINE. Addendum: 03/30/22 at 1910 by Naren Kamara RN Amended: Links added.
[2022-03-30] MEDS: hydrALAZINE 20mg/ml inj. IV PRN ×3 (18:42→19:22)
--- NOTE | 2022-03-30 19:34 | NUR ---
PATIENT HAS MET ALL CRITERIA FOR TRANSFER TO ICU FLOOR. VSS. DRESSINGS INTACT. BED LOW, CALL LIGHT PRESENT AND 2 RAILS UP. RN PRESENT TO ACCEPT CARE OF PATIENT AND REPORT HAS BEEN CALLED. ALL QUESTIONS ANSWERED TO ACCEPTING RN. Addendum: 03/30/22 at 1945 by Naren Kamara RN Amended: Links added.
[2022-03-30] MEDS ORDERED: hydrALAZINE 20mg/ml inj. IV PRN (21:20)
[2022-03-30] MEDS: potassium CL 20mEq in D5-1/2NS 1,000 ML IV SCH (21:59)
[2022-03-30] MEDS ORDERED: METO-395 PO (23:22)
[2022-03-30] MEDS ORDERED: albuterol 2.5 MG/3 ML nebule NEB PRN (23:25)
[2022-03-31] VITALS (14 sets, daily range): BP systolic 137–181; BP diastolic 58–80
[2022-03-31] MEDS: ceFAZolin inj. 1,000 MG in dextrose 5%-water 50ml 50 ML IV SCH ×3 (00:54→16:32)
[2022-03-31] MEDS: potassium CL 20mEq in D5-1/2NS 1,000 ML IV SCH ×2 (03:05→05:06)
--- NOTE | 2022-03-31 05:47 | NUR ---
Patient arrived to room at 2100. Left arm kerlex dressing intact, Radial artery palpable. Patient reports good sensation in harm, fingers warm to the touch. SBP remained less than 180, no PRN hydralazine given. Pain controlled.
--- NOTE | 2022-03-31 06:21 | NUR ---
Problems reprioritized. Patient report given, questions answered & plan of care reviewed with Mariama.
[2022-03-31 06:29] LABS: BASOPHILS % (AUTO) 0.1 % (0-1); EOSINOPHILS % (AUTO) 0 % (0-6); HEMATOCRIT 29.3 % (35.0-45.0); HEMOGLOBIN 9.8 g/dl (12.0-16.0); LYMPHOCYTES # (AUTO) 0.6 X10'3 (1.1-4.8); LYMPHOCYTES % (AUTO) 6.8 % (21-51); MEAN CORPUSCULAR HEMOGLOBIN 29.7 PG (27.0-31.0); MEAN CORPUSCULAR HGB CONC 33.5 g/dL (33.0-36.5); MEAN CORPUSCULAR VOLUME 88.7 FL (78-98); MEAN PLATELET VOLUME 7.5 FL (7.4-10.4); MONOCYTES # (AUTO) 0.3 X10'3 (0-0.9); MONOCYTES % (AUTO) 3.1 % (2-12); NEUTROPHILS # (AUTO) 7.6 X10'3 (1.8-7.7); PLATELET COUNT 328 X10'3 (140-440); RED BLOOD COUNT 3.31 X10'6 (4.20-5.60); RED CELL DISTRIBUTION WIDTH 14.2 % (11.5-14.5); WHITE BLOOD COUNT 8.5 X10'3 (4.5-11.0)
--- NOTE | 2022-03-31 06:54 | NUR ---
Patient in room ICU 2042. I have received report from CHARLENE Thacker and had the opportunity to ask questions and assume patient care.
[2022-03-31] MEDS: metoprolol succinate 25mg (24-HOUR) SR. Tablet PO SCH ×2 (07:07→08:33)
[2022-03-31] MEDS: propranolol 10mg tablet PO SCH ×2 (07:07→08:33)
[2022-03-31] MEDS ORDERED: aspirin 81mg, enteric-coated 1 TAB TABLET.DR PO SCH (08:00)
[2022-03-31] MEDS ORDERED: celeCOXIB 100mg capsule PO SCH (08:00)
[2022-03-31] MEDS ORDERED: cetirizine 10mg tablet PO SCH (08:00)
[2022-03-31] MEDS ORDERED: clopidogrel 75mg tablet PO SCH (08:00)
[2022-03-31] MEDS ORDERED: atorvastatin 20mg tablet PO SCH (08:00)
[2022-03-31] MEDS ORDERED: losartan 50mg tablet PO SCH (08:00)
[2022-03-31] MEDS ORDERED: acetaminophen 325mg tablet PO PRN (08:25)
--- NOTE | 2022-03-31 18:25 | NUR ---
Patient discharged via daughter and and taken from unit via wheelchair with x1 RN and family. Patient PIV and cox catheter removed. Patient was given discharge instructions and stated an understanding of the information. Patient and family given time for questions and answers. Patient to follow up with Dr. Padgett on Saturday.
--- NOTE | 2022-04-10 11:31 | NUR ---
Case Management DC follow up: Spoke with Patient via telephone.S/P : Patient Reports: Denies : Acute/continuous CP, emergent SOB, resp distress, dyspnea, N/V, weakness, vertigo, syncope episodes, orthostatic hypotension, ROBERTS, blurry vision, s/s of stroke/BE-FAST, dysuria, hematuria, Abdominal pain/distention, hematochezia, melena, unexplained bruising, bleeding, fever, chills. Denies: redness, increased swelling, increased pain, drainage, warmth to touch, and/or odor from incision site. Verbalizes understanding of s/s that warrant a 9-11/ER visit for further evaluation. Verbalizes understanding of Rx:, why prescribed;continues/resumes current Rx as ordered.Verbalizes plan for surgery of her left carotid with on 04/16/22.Verbalizes she has seen her PCP for follow up appointment.Verbalizes the nurses and staff were absolutely fantastic. Needs met, questions/concerns addressed at DC ; no new questions/concerns regarding recent hospital stay and/or DC status at this time.
[2022-04-20] MEDS ORDERED: METO50TA16 PO ×2 (14:59)
[2022-04-22] MEDS ORDERED: LOP12.5T PO (02:08)
[2022-04-25] MEDS ORDERED: LACT1CAP26 PO (08:23)
[2022-04-25] MEDS ORDERED: METR-159 PO (08:23)
[2022-04-25] MEDS ORDERED: LOSA50TA64 PO (08:23)
[2022-04-25] MEDS ORDERED: CEFD300C3 PO (08:23)
[2022-04-25] MEDS ORDERED: PANT40TA54 PO (08:23)
[2022-04-25] MEDS ORDERED: AMLO5TAB16 PO (08:23)
[2022-04-25] MEDS ORDERED: DOCU-148 PO (08:24)
== END 2022-03-31 18:30 | disposition home or self-care (01) ==
LOC: INTOOBSV 03-30 12:55 → PAS IN 03-30 12:55 → OBSVTOIN 03-30 12:55 → ICU 2S 03-30 19:20
PROVIDERS: ADMIT Surgery; ATTEND Surgery
DX: I65.23 Occlusion and stenosis of bilateral carotid arteries (principal)
CPT/HCPCS: 35206; 36415; 80053; 82948; 85025; 86885; 86900; 86901; 87081; 87811; 93005; 96365; 96366; 96375; 96376; A6258; C1758; G0378; J0360; J0690; J1100; J1170; J1644; J2250; J2370; J2405; J2704; J3010; J3480; J3490; J7030; J7040; J7050; J7060; J7120; A4215; A4615; A4618; A6446; A6449; A7000

== ENCOUNTER 2023-03-24 08:49 | Emergency (ER) | payer MEDICARE, MEDICAID ==
[~2023-03-24] VITALS: Ht 154.9 cm; Wt 72.0 kg
[~2023-03-24 08:49] MED LIST changes: +AMLO5TAB16 PO; +DOCU-148 PO; +LACT1CAP26 PO; +LOP12.5T PO; -LOSA25TA41 PO; +LOSA50TA64 PO; -METO-539 PO; +PANT40TA54 PO; -PROP20TA6 PO
[2023-03-24 09:51] VITALS: TEMP 97.7
[2023-03-24] MEDS ORDERED: normal saline 1000ML IV soln IVB ONE (09:55)
[2023-03-24 10:36] LABS: BASOPHILS % (AUTO) 0.3 % (0-1); EOSINOPHILS # (AUTO) 0.1 X10'3 (0-0.9); EOSINOPHILS % (AUTO) 1.7 % (0-6); HEMATOCRIT 37.9 % (35.0-45.0); HEMOGLOBIN 12.6 g/dl (12.0-16.0); LYMPHOCYTES # (AUTO) 1.2 X10'3 (1.1-4.8); LYMPHOCYTES % (AUTO) 14.8 % (21-51); MEAN CORPUSCULAR HEMOGLOBIN 30.1 PG (27.0-31.0); MEAN CORPUSCULAR HGB CONC 33.2 g/dL (33.0-36.5); MEAN CORPUSCULAR VOLUME 90.7 FL (78-98); MEAN PLATELET VOLUME 7.1 FL (7.4-10.4); MONOCYTES # (AUTO) 0.6 X10'3 (0-0.9); MONOCYTES % (AUTO) 6.7 % (2-12); NEUTROPHILS # (AUTO) 6.5 X10'3 (1.8-7.7); NEUTROPHILS % (AUTO) 76.5 % (42-75); PLATELET COUNT 384 X10'3 (140-440); RED BLOOD COUNT 4.18 X10'6 (4.20-5.60); RED CELL DISTRIBUTION WIDTH 14.1 % (11.5-14.5); WHITE BLOOD COUNT 8.5 X10'3 (4.5-11.0)
[2023-03-24 10:48] LABS: ALANINE AMINOTRANSFERASE 18 U/L (12-78); ALBUMIN 3.7 G/DL (3.4-5.0); ALKALINE PHOSPHATASE 113 IU/L (46-116); AMYLASE 35 U/L (25-115); ANION GAP 7 (8-16); ASPARTATE AMINO TRANSFERASE 13 U/L (10-37); BILIRUBIN,TOTAL 0.3 MG/DL (0.1-1.0); BLOOD UREA NITROGEN 31 MG/DL (7-18); CALCIUM 9.4 MG/DL (8.5-10.1); CHLORIDE 105 MMOL/L (99-107); CREATININE 1.41 MG/DL (0.40-0.90); GLUCOSE 114 MG/DL (70-104); LIPASE < 50 U/L (73-393); POTASSIUM 4.3 MMOL/L (3.5-5.1); SODIUM 139 MMOL/L (135-145); TOTAL CARBON DIOXIDE 27.4 MMOL/L (24-32); TOTAL PROTEIN 7.3 G/DL (6.4-8.2); eCRCL 22 ML/MIN; eGFR 36 ML/MIN
[2023-03-24] MEDS ORDERED: glycerin ADULT rectal suppository RC ONE (10:55)
[2023-03-24] MEDS ORDERED: PEG 3350/Na sulf,bicarb,Cl/KCl oral sol 4 liter bottle PO ONE (10:55)
[2023-03-24] MEDS ORDERED: bisacodyl 10mg suppository rectal RC ONE (11:20)
[2023-03-24 12:55] VITALS: BP 142/81; PULSE 52; RESP 18; O2SAT 93
[2023-03-24 13:26] LABS: ALBUMIN 3.3 G/DL (3.4-5.0); ANION GAP 6 (8-16); BLOOD UREA NITROGEN 27 MG/DL (7-18); BUN/CREATININE RATIO 19.9 (10.0-20.0); CALCIUM 8.6 MG/DL (8.5-10.1); CHLORIDE 108 MMOL/L (99-107); CREATININE 1.36 MG/DL (0.40-0.90); GLUCOSE 93 MG/DL (70-104); POTASSIUM 4.4 MMOL/L (3.5-5.1); SODIUM 142 MMOL/L (135-145); eCRCL 23 ML/MIN; eGFR 37 ML/MIN
== END 2023-03-24 14:13 | disposition home or self-care (01) ==
LOC: ER 08:49
DX: K59.00 Constipation, unspecified (principal); E78.00 Pure hypercholesterolemia, unspecified; I10 Essential (primary) hypertension; M19.90 Unspecified osteoarthritis, unspecified site; Z88.5 Allergy status to narcotic agent; Z79.2 Long term (current) use of antibiotics; Z79.899 Other long term (current) drug therapy
CPT/HCPCS: 36415; 74022; 80048; 80053; 82150; 83690; 85025; 99284; J7030

== ENCOUNTER 2023-08-22 14:09 | Inpatient (IN) | payer MEDICARE, MEDICAID ==
[~2023-08-22] VITALS: Ht 154.9 cm; Wt 75.0 kg
[2023-08-22 18:04] LABS: BASOPHILS % (AUTO) 0.2 % (0-1); EOSINOPHILS # (AUTO) 0.4 X10'3 (0-0.9); EOSINOPHILS % (AUTO) 3.6 % (0-6); HEMATOCRIT 38.5 % (35.0-45.0); HEMOGLOBIN 12.5 g/dl (12.0-16.0); LYMPHOCYTES # (AUTO) 1.9 X10'3 (1.1-4.8); LYMPHOCYTES % (AUTO) 17.2 % (21-51); MEAN CORPUSCULAR HEMOGLOBIN 29.7 PG (27.0-31.0); MEAN CORPUSCULAR HGB CONC 32.3 g/dL (33.0-36.5); MEAN CORPUSCULAR VOLUME 91.9 FL (78-98); MEAN PLATELET VOLUME 7.5 FL (7.4-10.4); MONOCYTES # (AUTO) 1.2 X10'3 (0-0.9); MONOCYTES % (AUTO) 11.2 % (2-12); NEUTROPHILS # (AUTO) 7.3 X10'3 (1.8-7.7); NEUTROPHILS % (AUTO) 67.8 % (42-75); PLATELET COUNT 384 X10'3 (140-440); RED BLOOD COUNT 4.19 X10'6 (4.20-5.60); RED CELL DISTRIBUTION WIDTH 14.3 % (11.5-14.5); WHITE BLOOD COUNT 10.8 X10'3 (4.5-11.0)
[2023-08-22 18:36] LABS: ALANINE AMINOTRANSFERASE 22 U/L (12-78); ALBUMIN 3.4 G/DL (3.4-5.0); ALBUMIN/GLOBULIN RATIO 0.7 (1.1-1.5); ALKALINE PHOSPHATASE 110 IU/L (46-116); ANION GAP 7 (8-16); ASPARTATE AMINO TRANSFERASE 25 U/L (10-37); BILIRUBIN,TOTAL 0.4 MG/DL (0.1-1.0); BLOOD UREA NITROGEN 30 MG/DL (7-18); BUN/CREATININE RATIO 23.3 (10.0-20.0); CALCIUM 9.6 MG/DL (8.5-10.1); CHLORIDE 99 MMOL/L (99-107); CREATININE 1.29 MG/DL (0.40-0.90); GLUCOSE 91 MG/DL (70-104); POTASSIUM 4.4 MMOL/L (3.5-5.1); PRO BRAIN NATRIURETIC PEPTIDE 1236 PG/ML (0-450); SODIUM 135 MMOL/L (135-145); TOTAL CARBON DIOXIDE 28.6 MMOL/L (24-32); eCRCL 25 ML/MIN; eGFR 39 ML/MIN
[2023-08-23] MEDS ORDERED: normal saline 1000ml 1,000 ML IV ONE (00:55)
[2023-08-23] MEDS ORDERED: CefTRIAXone/D5W-Rocephin 1gm 50 ML IV ONE (00:55)
[2023-08-23] MEDS ORDERED: azithromycin/NS 500mg/250ml 250 ML IV ONE (00:55)
[2023-08-23] MEDS ORDERED: methylPREDNISolone sod succ 125mg/2ml vial IV ONE (00:55)
[2023-08-23] MEDS ORDERED: ondansetron/PF 4mg/2ml inj IV PRN (01:25)
[2023-08-23] MEDS ORDERED: potassium Cl 40MEQ/1/2NS 520ml 520 ML IV PRN (01:25)
[2023-08-23] MEDS ORDERED: magnesium 2GM in 50ml NS 50 ML IV PRN (01:25)
[2023-08-23] MEDS ORDERED: magnesium 4gm in 100ml NS 100 ML IV PRN (01:25)
[2023-08-23] MEDS ORDERED: potassium Cl 20 mEq SR tablet PO PRN ×2 (01:25)
[2023-08-23] MEDS ORDERED: magnesium Cl slow-release 64mg tablet PO PRN (01:25)
[2023-08-23] MEDS ORDERED: albuterol 2.5 MG/3 ML nebule NEB ONE (02:15)
[2023-08-23] MEDS ORDERED: ondansetron/PF 4mg/2ml inj IV ONE (02:15)
[2023-08-23 02:41] VITALS: PULSE 74; RESP 18
[2023-08-23 02:49] VITALS: PULSE 75; RESP 14; O2SAT 96
[2023-08-23] MEDS: guaiFENesin/DM 10ml UD oral syrup PO SCH ×6 (04:16→23:54)
[2023-08-23] MEDS ORDERED: DOXY100T30 PO (04:29)
[2023-08-23] MEDS ORDERED: BENZ200C53 PO ×2 (04:29→07:04)
[2023-08-23] MEDS ORDERED: LOSA100T58 PO (04:29)
[2023-08-23] MEDS ORDERED: CELE-127 PO ×2 (04:29→07:06)
[2023-08-23] MEDS ORDERED: METO100T14 PO (04:29)
[2023-08-23] MEDS ORDERED: temazepam 15mg capsule PO PRN (04:36)
[2023-08-23] MEDS: acetaminophen 325mg tablet PO PRN (04:41)
[2023-08-23] MEDS ORDERED: DOXY100T56 PO (07:07)
[2023-08-23] MEDS ORDERED: LACT1CAP26 PO (07:08)
[2023-08-23] MEDS: methylPREDNISolone sod succ 125mg/2ml vial IV SCH ×2 (07:14→20:16)
[2023-08-23] MEDS: acetaminophen 325mg tablet PO SCH ×3 (07:56→23:59)
[2023-08-23] MEDS: aspirin 81mg, enteric-coated 1 TAB TABLET.DR PO SCH (09:17)
[2023-08-23] MEDS: metoprolol tartrate 50mg tablet PO SCH ×2 (09:17→19:59)
[2023-08-23] MEDS: atorvastatin 20mg tablet PO SCH (09:17)
[2023-08-23] MEDS ORDERED: albuterol 2.5 MG/3 ML nebule NEB PRN (12:40)
[2023-08-23] MEDS ORDERED: ipratropium/albuterol 3ml nebule NEB PRN (12:40)
[2023-08-23] MEDS: furosemide 20 MG/2 ML vial IV SCH (13:20)
[2023-08-23 15:24] VITALS: PULSE 69; RESP 18; O2SAT 96
[2023-08-23 18:16] LABS: BILIRUBIN,URINE NEGATIVE (Neg); CLARITY,URINE CLEAR (Clear); COLOR,URINE YELLOW (Yellow); GLUCOSE, URINE NEGATIVE (Neg); KETONES,URINE NEGATIVE (Neg); LEUKOCYTE ESTERASE ,URINE NEGATIVE (Neg); NITRITES, URINE NEGATIVE (Neg); OCCULT BLOOD,URINE NEGATIVE (Neg); PH,URINE 5.5 (4.8-8.0); PROTEIN,URINE NEGATIVE (Neg); UROBILINOGEN,URINE 0.2 E.U/dL (0.2-1.0)
[2023-08-23 18:38] LABS: UA COLLECTION TYPE CLN CATCH MIDSTREAM
[2023-08-23] MEDS ORDERED: metoprolol tartrate 12.5mg (1/2 tablet) PO SCH (20:00)
[2023-08-23] MEDS ORDERED: enoxaparin 40mg/0.4ml syringe SQ SCH (20:00)
[2023-08-23 22:30] VITALS: BP 165/85; PULSE 59; RESP 20; TEMP 97.6; O2SAT 95
[2023-08-24] VITALS (10 sets, daily range): BP systolic 133–182; BP diastolic 64–83; PULSE 55–76; RESP 12–20; TEMP 97.5–98.6; O2SAT 91–96
[2023-08-24] MEDS: azithromycin/NS 500mg/250ml 250 ML IV SCH ×2 (00:51→22:44)
[2023-08-24] MEDS: CefTRIAXone 2gm/D5W 50ml BAG 50 ML IV SCH ×2 (02:04→21:14)
[2023-08-24] MEDS: guaiFENesin/DM 10ml UD oral syrup PO SCH ×5 (04:36→19:56)
[2023-08-24 06:19] LABS: BASOPHILS % (AUTO) 0.1 % (0-1); EOSINOPHILS % (AUTO) 0 % (0-6); HEMATOCRIT 34.5 % (35.0-45.0); LYMPHOCYTES # (AUTO) 1.5 X10'3 (1.1-4.8); MEAN CORPUSCULAR HEMOGLOBIN 29.3 PG (27.0-31.0); MEAN CORPUSCULAR HGB CONC 31.9 g/dL (33.0-36.5); MEAN CORPUSCULAR VOLUME 91.9 FL (78-98); MEAN PLATELET VOLUME 7.5 FL (7.4-10.4); MONOCYTES # (AUTO) 1.1 X10'3 (0-0.9); MONOCYTES % (AUTO) 6.3 % (2-12); NEUTROPHILS # (AUTO) 14.6 X10'3 (1.8-7.7); NEUTROPHILS % (AUTO) 84.6 % (42-75); PLATELET COUNT 397 X10'3 (140-440); RED BLOOD COUNT 3.76 X10'6 (4.20-5.60); RED CELL DISTRIBUTION WIDTH 14.5 % (11.5-14.5); WHITE BLOOD COUNT 17.2 X10'3 (4.5-11.0)
[2023-08-24 06:47] LABS: ALANINE AMINOTRANSFERASE 20 U/L (12-78); ALBUMIN/GLOBULIN RATIO 0.7 (1.1-1.5); ALKALINE PHOSPHATASE 104 IU/L (46-116); ANION GAP 11 (8-16); ASPARTATE AMINO TRANSFERASE 23 U/L (10-37); BILIRUBIN,TOTAL 0.2 MG/DL (0.1-1.0); BLOOD UREA NITROGEN 53 MG/DL (7-18); BUN/CREATININE RATIO 33.3 (10.0-20.0); CHLORIDE 103 MMOL/L (99-107); CREATININE 1.59 MG/DL (0.40-0.90); GLUCOSE 137 MG/DL (70-104); POTASSIUM 4.4 MMOL/L (3.5-5.1); SODIUM 139 MMOL/L (135-145); TOTAL CARBON DIOXIDE 25.4 MMOL/L (24-32); TOTAL PROTEIN 7.4 G/DL (6.4-8.2); eCRCL 20 ML/MIN; eGFR 31 ML/MIN
[2023-08-24] MEDS: furosemide 20 MG/2 ML vial IV SCH (07:29)
[2023-08-24] MEDS: methylPREDNISolone sod succ 125mg/2ml vial IV SCH (07:31)
[2023-08-24] MEDS: losartan 50mg tablet PO SCH (07:32)
[2023-08-24] MEDS: aspirin 81mg, enteric-coated 1 TAB TABLET.DR PO SCH (07:32)
[2023-08-24] MEDS: metoprolol tartrate 50mg tablet PO SCH ×2 (07:32→19:57)
[2023-08-24] MEDS: acetaminophen 325mg tablet PO SCH ×2 (07:33→16:00)
[2023-08-24] MEDS: atorvastatin 20mg tablet PO SCH (07:33)
[2023-08-24] MEDS ORDERED: enoxaparin 30mg/0.3ml syringe SQ SCH (13:58)
[2023-08-24] MEDS: methylPREDNISolone sod succ/PF 40mg inj. IV SCH ×2 (14:52→21:13)
[2023-08-24] MEDS: acetaminophen 325mg tablet PO PRN (21:14)
[2023-08-25] MEDS: guaiFENesin/DM 10ml UD oral syrup PO SCH ×4 (01:05→11:51)
[2023-08-25] MEDS: acetaminophen 325mg tablet PO SCH ×2 (01:06→08:07)
[2023-08-25 02:00] VITALS: BP 115/70; PULSE 55; RESP 22; TEMP 97.8; O2SAT 92
[2023-08-25 06:09] LABS: BASOPHILS % (AUTO) 0.2 % (0-1); EOSINOPHILS % (AUTO) 0 % (0-6); HEMATOCRIT 33.3 % (35.0-45.0); HEMOGLOBIN 10.6 g/dl (12.0-16.0); LYMPHOCYTES # (AUTO) 1.2 X10'3 (1.1-4.8); LYMPHOCYTES % (AUTO) 6.7 % (21-51); MEAN CORPUSCULAR HGB CONC 31.8 g/dL (33.0-36.5); MEAN CORPUSCULAR VOLUME 91.3 FL (78-98); MONOCYTES # (AUTO) 0.9 X10'3 (0-0.9); MONOCYTES % (AUTO) 5.1 % (2-12); NEUTROPHILS # (AUTO) 15.2 X10'3 (1.8-7.7); PLATELET COUNT 426 X10'3 (140-440); RED BLOOD COUNT 3.65 X10'6 (4.20-5.60); RED CELL DISTRIBUTION WIDTH 14.8 % (11.5-14.5); WHITE BLOOD COUNT 17.3 X10'3 (4.5-11.0)
[2023-08-25 06:17] LABS: ANION GAP 9 (8-16); BILIRUBIN,TOTAL 0.2 MG/DL (0.1-1.0); BLOOD UREA NITROGEN 57 MG/DL (7-18); BUN/CREATININE RATIO 44.2 (10.0-20.0); CHLORIDE 103 MMOL/L (99-107); CREATININE 1.29 MG/DL (0.40-0.90); GLUCOSE 117 MG/DL (70-104); POTASSIUM 4.5 MMOL/L (3.5-5.1); SODIUM 137 MMOL/L (135-145); TOTAL CARBON DIOXIDE 25.1 MMOL/L (24-32); TOTAL PROTEIN 6.9 G/DL (6.4-8.2); eCRCL 25 ML/MIN; eGFR 39 ML/MIN
[2023-08-25 06:18] LABS: ALANINE AMINOTRANSFERASE 26 U/L (12-78); ALBUMIN 3.1 G/DL (3.4-5.0); ALBUMIN/GLOBULIN RATIO 0.8 (1.1-1.5); ALKALINE PHOSPHATASE 94 IU/L (46-116); ASPARTATE AMINO TRANSFERASE 23 U/L (10-37)
[2023-08-25 07:00] VITALS: BP 170/67; PULSE 50; RESP 17; TEMP 97.5; O2SAT 95
[2023-08-25] MEDS: furosemide 20 MG/2 ML vial IV SCH (08:00)
[2023-08-25] MEDS: metoprolol tartrate 50mg tablet PO SCH (08:06)
[2023-08-25] MEDS: atorvastatin 20mg tablet PO SCH (08:06)
[2023-08-25] MEDS: aspirin 81mg, enteric-coated 1 TAB TABLET.DR PO SCH (08:06)
[2023-08-25] MEDS: methylPREDNISolone sod succ/PF 40mg inj. IV SCH (08:06)
[2023-08-25] MEDS: losartan 50mg tablet PO SCH (08:07)
[2023-08-25 09:11] VITALS: RESP 17; O2SAT 95
[2023-08-25] MEDS ORDERED: FURO-150 PO (11:06)
[2023-08-25] MEDS ORDERED: PRED10TA23 PO (11:06)
[2023-08-25 11:31] VITALS: BP 135/63; PULSE 51; RESP 12; TEMP 97; O2SAT 93
== END 2023-08-25 12:37 | disposition home health service (06) | DRG 189 ==
LOC: ER 14:10 → ED HOLD 08-23 01:26 → EDBEDREQ 08-23 20:56 → PCU 3S 08-23 22:07
PROVIDERS: ADMIT Internal Medicine; ATTEND Internal Medicine
DX: J96.01 Acute respiratory failure with hypoxia (principal); I50.33 Acute on chronic diastolic (congestive) heart failure; J12.1 Respiratory syncytial virus pneumonia; J15.9 Unspecified bacterial pneumonia; I13.0 Hypertensive heart and chronic kidney disease with heart failure and stage 1 through stage 4 chronic kidney disease, or unspecified chronic kidney disease; Z20.822 Contact with and (suspected) exposure to COVID-19; N18.30 Chronic kidney disease, stage 3 unspecified; E78.00 Pure hypercholesterolemia, unspecified; Z79.899 Other long term (current) drug therapy; Z88.5 Allergy status to narcotic agent; Z79.82 Long term (current) use of aspirin; I50.9 Heart failure, unspecified
CPT/HCPCS: 36415; 71046; 80053; 81003; 83605; 83880; 84145; 85025; 87040; 87081; 87502; 87503; 87634; 87811; 93306; 94640; 94760; 99285; G0378; J0456; J0696; J1650; J1940; J2405; J2920; J2930; J7030